=== PATIENT | female | born 1980 | race African-American/Black ===

== ENCOUNTER 2022-05-15 15:10 | Outpatient (CLI) | payer BC | END 2022-05-15 15:11 | disposition home or self-care (01) | LOC: CSHMAMMO 15:10 | PROVIDERS: ATTEND Family Medicine | DX: Z12.31 Encounter for screening mammogram for malignant neoplasm of breast (principal) | CPT/HCPCS: 77063; 77067 ==

== ENCOUNTER 2022-07-10 15:24 | Outpatient (CLI) | payer BC | END 2022-07-10 15:25 | disposition home or self-care (01) | LOC: CSHULT 15:24 | PROVIDERS: ATTEND Family Medicine | DX: D25.9 Leiomyoma of uterus, unspecified (principal) | CPT/HCPCS: 76856 ==

== ENCOUNTER 2023-05-27 09:39 | Outpatient (CLI) | payer OTHER | END 2023-05-27 09:40 | disposition home or self-care (01) | LOC: CSHMAMMO 09:39 | PROVIDERS: ATTEND Family Medicine | DX: Z12.31 Encounter for screening mammogram for malignant neoplasm of breast (principal) | CPT/HCPCS: 77063; 77067 ==

== ENCOUNTER 2024-09-22 08:00 | Outpatient (CLI) | payer BC | END 2024-09-22 08:01 | disposition home or self-care (01) | LOC: CSHULT 08:00 | PROVIDERS: ATTEND Family Medicine | DX: R10.2 Pelvic and perineal pain (principal); D25.9 Leiomyoma of uterus, unspecified; R93.89 Abnormal findings on diagnostic imaging of other specified body structures | CPT/HCPCS: 76700; 76856 ==